=== PATIENT | female | born 1985 | race Caucasian/White ===

== ENCOUNTER 2018-08-04 19:16 | Emergency (ER) | payer MEDICAID ==
[~2018-08-04] VITALS: Ht 157.5 cm; Wt 52.6 kg
[~2018-08-04 19:16] MED LIST: IBUP-1984 PO
[2018-08-04] MEDS ORDERED: AZIT250T PO (20:42)
[2018-08-04 21:10] VITALS: BP 121/88
== END 2018-08-04 21:11 | disposition home or self-care (01) ==
LOC: ER 19:17
DX: J40 Bronchitis, not specified as acute or chronic (principal); F15.90 Other stimulant use, unspecified, uncomplicated; Z98.890 Other specified postprocedural states
CPT/HCPCS: 71046; 99283

== ENCOUNTER 2020-12-16 03:14 | Emergency (ER) | payer MEDICAID ==
[~2020-12-16] VITALS: Ht 157.5 cm; Wt 47.7 kg
[~2020-12-16 03:14] MED LIST changes: +AZIT250T PO
--- NOTE | 2020-12-16 03:21 | NUR ---
PT STOOD UP OFF THE GROUND AND LEFT TRIAGE ROOM IN THE MIDDLE OF TRIAGE. UNABLE TO OBTAIN BP. STATED "FUCK YOU", AND AMBULATED OUT OF LOBBY.
[2020-12-16] MEDS ORDERED: ondansetron/PF 4mg/2ml inj IV ONE (04:00)
[2020-12-16] MEDS ORDERED: ketorolac trometh. 30mg/ml inj. IV ONE (04:00)
[2020-12-16] MEDS ORDERED: normal saline 1000ML IV soln IVB ONE (04:00)
[2020-12-16] MEDS: HYDROmorphone inj. 0.5 MG/0.5 ML DISP.SYRIN IV PRN ×2 (04:24→04:39)
[2020-12-16 04:39] LABS: BASOPHILS # (AUTO) 0.1 X10'3 (0-0.2); BASOPHILS % (AUTO) 0.6 % (0-1); EOSINOPHILS # (AUTO) 0.3 X10'3 (0-0.9); EOSINOPHILS % (AUTO) 2.2 % (0-6); HEMATOCRIT 35.8 % (35.0-45.0); LYMPHOCYTES # (AUTO) 3.9 X10'3 (1.1-4.8); LYMPHOCYTES % (AUTO) 30.9 % (21-51); MEAN CORPUSCULAR HEMOGLOBIN 31.1 PG (27.0-31.0); MEAN CORPUSCULAR HGB CONC 33.5 g/dL (33.0-36.5); MEAN CORPUSCULAR VOLUME 92.7 FL (78-98); MEAN PLATELET VOLUME 6.9 FL (7.4-10.4); MONOCYTES # (AUTO) 1.1 X10'3 (0-0.9); MONOCYTES % (AUTO) 8.9 % (2-12); NEUTROPHILS # (AUTO) 7.3 X10'3 (1.8-7.7); NEUTROPHILS % (AUTO) 57.4 % (42-75); PLATELET COUNT 493 X10'3 (140-440); RED BLOOD COUNT 3.86 X10'6 (4.20-5.60); RED CELL DISTRIBUTION WIDTH 13.9 % (11.5-14.5); WHITE BLOOD COUNT 12.7 X10'3 (4.5-11.0)
[2020-12-16 04:47] LABS: ALANINE AMINOTRANSFERASE 18 U/L (12-78); ALBUMIN 4.1 G/DL (3.4-5.0); ALBUMIN/GLOBULIN RATIO 1.2 (1.1-1.5); ALKALINE PHOSPHATASE 126 IU/L (46-116); ANION GAP 7 (8-16); ASPARTATE AMINO TRANSFERASE 19 U/L (10-37); BILIRUBIN,TOTAL 0.2 MG/DL (0.1-1.0); BLOOD UREA NITROGEN 13 MG/DL (7-18); BUN/CREATININE RATIO 16.5 (6.6-38.0); CALCIUM 8.7 MG/DL (8.5-10.1); CHLORIDE 108 MMOL/L (99-107); CREATININE 0.79 MG/DL (0.40-0.90); GLUCOSE 89 MG/DL (70-104); POTASSIUM 3.9 MMOL/L (3.5-5.1); SODIUM 143 MMOL/L (135-145); TOTAL CARBON DIOXIDE 27.7 MMOL/L (24-32); TOTAL PROTEIN 7.5 G/DL (6.4-8.2); eGFR 82 ML/MIN
--- NOTE | 2020-12-16 05:46 | NUR ---
US AT BEDSIDE
[2020-12-16] MEDS ORDERED: ketorolac tromethamine 15mg/ml inj. IV ONE (07:00)
[2020-12-16 07:18] LABS: HCG SERUM QL NEGATIVE
[2020-12-16 07:20] LABS: CLARITY,URINE CLEAR (Clear); COLOR,URINE YELLOW (Yellow); PH,URINE 6.5 (4.8-8.0); UA COLLECTION TYPE CLN CATCH MIDSTREAM
[2020-12-16 07:21] LABS: GLUCOSE, URINE NEGATIVE (Neg); KETONES,URINE NEGATIVE (Neg); LEUKOCYTE ESTERASE ,URINE NEGATIVE (Neg); NITRITES, URINE NEGATIVE (Neg); OCCULT BLOOD,URINE LARGE (Neg); PROTEIN,URINE NEGATIVE (Neg); UROBILINOGEN,URINE 0.2 E.U/dL (0.2-1.0)
--- NOTE | 2020-12-16 07:22 | NUR ---
PT GIVEN TORADOL FOR PAIN
[2020-12-16 07:27] LABS: BACTERIA,URINE 1+ /HPF (Neg); MUCUS STRANDS MODERATE /LPF (Neg); SQUAMOUS EPITHELIAL CELL,UR MODERATE /LPF (FEW); WBC,URINE 0-4 /HPF (0-4)
[2020-12-16] MEDS ORDERED: HYDR-3965 PO (08:45)
[2020-12-16 09:10] VITALS: BP 123/82
== END 2020-12-16 09:12 | disposition home or self-care (01) ==
LOC: ER 03:14
DX: R10.32 Left lower quadrant pain (principal); R11.0 Nausea; N20.0 Calculus of kidney; F15.90 Other stimulant use, unspecified, uncomplicated; Z90.710 Acquired absence of both cervix and uterus; Z98.890 Other specified postprocedural states; Z79.2 Long term (current) use of antibiotics; Z79.899 Other long term (current) drug therapy
CPT/HCPCS: 36415; 74176; 76830; 76857; 80053; 81001; 84703; 85025; 93976; 96361; 96374; 96375; 96376; 99285; J1170; J1885; J2405; J7030

== ENCOUNTER 2025-03-07 19:01 | Emergency (ER) | payer MEDICAID ==
[~2025-03-07] VITALS: Ht 157.5 cm; Wt 49.8 kg
[2025-03-07 19:15] VITALS: BP 146/86; PULSE 116; RESP 18; TEMP 98.9; O2SAT 99
== END 2025-03-08 00:46 | disposition left against medical advice (07) ==
LOC: ER 19:01
DX: M79.646 Pain in unspecified finger(s) (principal)
CPT/HCPCS: 99281